=== PATIENT | female | born 1945 | race Caucasian/White ===

== ENCOUNTER 2017-12-17 13:26 | Day surgery (SDC) | payer MEDICARE, BC ==
[2017-12-17] MEDS ORDERED: BUPIVACAINE HCL 0.25% MPF 10 ML SOL INFIL ONE (14:05)
[2017-12-17] MEDS ORDERED: LIDOCAINE HCL 1% MPF 30 SOL ONE (14:25)
[2017-12-17] MEDS: DEXAMETHASONE SOD PHOS PF 10 MG/ML SOL IJ ONE ×2 (14:32→14:36)
[2017-12-17 14:54] VITALS: BP 128/67; PULSE 58; RESP 12; TEMP 99; O2SAT 99
== END 2017-12-17 15:06 | disposition home or self-care (01) | DRG 552 ==
LOC: SURG 13:26
PROVIDERS: ATTEND Nurse Anesthetist, Certified Registered
DX: M54.16 Radiculopathy, lumbar region (principal); M48.07 Spinal stenosis, lumbosacral region
CPT/HCPCS: J1100; J2001

== ENCOUNTER 2018-05-21 08:28 | Emergency (ER) | payer MEDICARE, BC ==
[2018-05-21] MEDS: SODIUM CHLORIDE 0.9% FLUSH 10 ML SOL IV PRN ×3 (08:55→10:12)
[2018-05-21 09:00] LABS: BASOPHILS % (AUTO) 1 % (0-3); EOSINOPHILS % (AUTO) 2 % (0-9); HEMATOCRIT 39 % (35-47); HEMOGLOBIN 12.4 gm/dl (12.0-15.5); LYMPHOCYTES % (AUTO) 37.1 % (10-50); MEAN CORPUSCULAR HEMOGLOBIN 27.5 pg (27.0-32.0); MEAN CORPUSCULAR HGB CONC 31.7 gm/dl (32.0-36.0); MEAN CORPUSCULAR VOLUME 87 fL (81-99); MONOCYTES % (AUTO) 7.9 % (0-12); NEUTROPHILS % (AUTO) 51.6 % (37-80)
[2018-05-21 09:15] VITALS: TEMP 98.2
[2018-05-21 09:18] LABS: ALBUMIN 3.2 gm/dl (3.4-5.0); ALKALINE PHOSPHATASE 79 IU/L (46-116); ALT 25 IU/L (14-63); AST 23 IU/L (15-37); BILIRUBIN,TOTAL 0.4 mg/dl (0.2-1.0); BLOOD UREA NITROGEN 18 mg/dl (7-18); CALCIUM 9.2 mg/dl (8.5-10.1); CARBON DIOXIDE 23.5 mEq/L (21-32); CHLORIDE 103 mMol/L (98-107); GLUCOSE 123 mg/dl (74-106); POTASSIUM 3.8 mMol/L (3.5-5.1); SODIUM 140 mMol/L (136-145); TOTAL PROTEIN 6.8 gm/dl (6.4-8.2); TROP I < 0.017 ng/ml (0.000-0.056)
[2018-05-21] MEDS ORDERED: LORAZEPAM 2 MG/ML SOL IV ONE (09:18)
[2018-05-21] MEDS ORDERED: LORAZEPAM 2 MG/ML SOL ONE (09:20)
[2018-05-21 10:04] VITALS: RESP 16
[2018-05-21 15:51] VITALS: BP 125/68; PULSE 79; O2SAT 96
== END 2018-05-21 11:42 | disposition home or self-care (01) | DRG 153 ==
LOC: ED 08:28
DX: J06.9 Acute upper respiratory infection, unspecified (principal)
CPT/HCPCS: 36415; 71045; 80053; 82550; 84484; 85025; 85378; 93005; 96374; 99284; 99285; J2060

== ENCOUNTER 2019-01-27 12:13 | Day surgery (SDC) | payer BC ==
[2019-01-27 12:37] VITALS: O2SAT 100
[2019-01-27] MEDS ORDERED: BUPIVACAINE HCL 0.25% MPF 30 ML SOL INFIL ONE (13:09)
[2019-01-27] MEDS ORDERED: DEXAMETHASONE SOD PHOS PF 10 MG/ML SOL IJ ONE (13:09)
[2019-01-27 13:40] VITALS: BP 123/47; PULSE 69; RESP 20; TEMP 97.9
== END 2019-01-27 14:06 | disposition home or self-care (01) | DRG 552 ==
LOC: SURG 12:13
PROVIDERS: ATTEND Nurse Anesthetist, Certified Registered
DX: M48.062 Spinal stenosis, lumbar region with neurogenic claudication (principal)
CPT/HCPCS: J1100